=== PATIENT | female | born 1940 | race Caucasian/White ===

== ENCOUNTER 2016-07-07 00:55 | Inpatient (IN) | payer OTHER ==
[~2016-07-07] VITALS: Ht 160 cm; Wt 58.5 kg
[2016-07-07] MEDS ORDERED: NACL 0.9% 1,000 ML IV SCH (00:56)
--- NOTE | 2016-07-07 00:56 | NUR ---
[facility] TO ER BED 1
--- NOTE | 2016-07-07 00:57 | NUR ---
Patient being evaluated by physician at bedside.
[2016-07-07 01:00] VITALS: BP 136/100
--- NOTE | 2016-07-07 01:15 | NUR ---
PATIENT BIB [facility] WITH ALOC. UNABLE TO OBTIAN HX AT THIS TIME. PT LIVES WITH FAMILY AND THEY WILL BE HERE SOON. SKIN IS PINK/WARM/DRY; LUNGS CLEAR BL; HR EVEN AND REGULAR;NO FEVER, CP, SOB, OR COUGH AT THIS TIME; NO PAIN AT THIS TIME; PATIENT POSITIONED FOR COMFORT; HOB ELEVATED; BEDRAILS UP X2; BED DOWN. ER MD MADE AWARE OF PT STATUS.
[2016-07-07 01:16] LABS: BASOPHILS # (AUTO) 0.2 K/uL (0.00-0.22); BASOPHILS % (AUTO) 2.4 % (0.0-2.0); EOSINOPHILS # (AUTO) 0.1 K/uL (0-0.4); EOSINOPHILS % (AUTO) 0.7 % (0.0-4.0); HEMATOCRIT 35.7 % (36-48); HEMOGLOBIN 12.2 g/dL (12.0-16.0); LYMPHOCYTES # (AUTO) 1.1 K/uL (2.5-16.5); LYMPHOCYTES % (AUTO) 11.8 % (20.5-51.1); MEAN CORPUSCULAR HEMOGLOBIN 29 pg (27-31); MEAN CORPUSCULAR HGB CONC 34 g/dL (33-37); MEAN CORPUSCULAR VOLUME 85 fL (80-94); MONOCYTES # (AUTO) 1.1 K/uL (0.8-1.0); MONOCYTES % (AUTO) 11.8 % (1.7-9.3); NEUTROPHILS # (AUTO) 7.1 K/uL (1.8-7.7); NEUTROPHILS % (AUTO) 73.3 % (42.2-75.2); PLATELET COUNT (AUTO) 247 K/uL (140-450); RED BLOOD CELL COUNT(AUTO) 4.19 MIL/uL (4.20-5.40); RED CELL DISTRIBUTION WIDTH 13.9 % (11.6-13.7)
[2016-07-07 01:34] LABS: ALANINE AMINOTRANSFERASE 31 U/L (12-78); ALBUMIN 4.5 g/dL (3.4-5.0); ALKALINE PHOSPHATASE 62 U/L (46-116); ANION GAP 30.3 (8-16); ASPARTATE AMINOTRANSFERASE 53 U/L (15-37); CALCIUM 8.1 mg/dL (8.5-10.1); CARBON DIOXIDE 14.6 mmol/L (21-32); CHLORIDE 97 mmol/L (98-107); GLUCOSE 67 mg/dL (74-106); SODIUM SERUM 135 mmol/L (136-145); TOTAL BILIRUBIN 0.5 mg/dL (0.0-1.0); TOTAL PROTEIN, SERUM 7.6 g/dL (6.4-8.2)
[2016-07-07 01:40] LABS: INR 1.1 (0.8-1.2); LACTIC ACID 1.4 mmol/L (0.4-2.0); PARTIAL THROMBOPLASTIN TIME 26.8 secs (22-35.6); PROTHROMBIN TIME 10.4 secs (10.8-13.4)
[2016-07-07 01:42] LABS: WHITE BLOOD COUNT (AUTO) 9.7 K/uL (4.8-10.8)
[2016-07-07 01:46] LABS: APPEARANCE,URINE SL CLOUDY (CLEAR); BILIRUBIN,URINE NEGATIVE (NEGATIVE); BLOOD, URINE 3+ (NEGATIVE); COLOR,URINE YELLOW (YELLOW); LEUKOCYTE ESTERASE ,URINE NEGATIVE (NEGATIVE); NITRITE, URINE NEGATIVE (NEGATIVE); PROTEIN,URINE 2+ (NEGATIVE); UGLUCOSE NEGATIVE (NEGATIVE); UROBILINOGEN,URINE 0.2 EU/dL (0.2 - 1)
[2016-07-07 01:49] LABS: CREATININE 12.7 mg/dL (0.6-1.3); POTASSIUM 6.9 mmol/L (3.5-5.1); UREA NITROGEN, BLOOD 102 mg/dL (7-18)
[2016-07-07] MEDS ORDERED: CHOL500040 PO (01:49)
[2016-07-07] MEDS ORDERED: PROM25TA27 PO (01:49)
[2016-07-07] MEDS ORDERED: LISI40TA4 PO (01:49)
[2016-07-07] MEDS ORDERED: CITA20TA7 PO (01:49)
[2016-07-07 01:55] LABS: RBC,URINE 0-5 (RARE) /HPF (0-5)
--- NOTE | 2016-07-07 01:55 | NUR ---
PT TO CT MADE AWARE
[2016-07-07 01:56] LABS: BACTERIA,URINE 2+ /HPF (None Seen); HYALINE CASTS, URINE 0-10 /LPF (None Seen); MUCUS,URINE 3+ /LPF (None Seen); SQUAMOUS EPITHELIAL CELL,UR 4-10 (MOD) /LPF (0-3 (FEW)); URINE AMORPHOUS URATE 1+ /HPF (None Seen); WBC,URINE 0-5 (RARE) /HPF (0-5)
[2016-07-07] MEDS ORDERED: ASCO500T45 PO (01:56)
[2016-07-07] MEDS ORDERED: ASPI81CT89 PO (01:56)
[2016-07-07] MEDS ORDERED: ORE25 PO (01:56)
[2016-07-07] MEDS ORDERED: HYDR-4452 PO (01:56)
[2016-07-07] MEDS ORDERED: MSCON15 PO (01:56)
[2016-07-07] MEDS ORDERED: FOLI-119 PO (02:01)
[2016-07-07] MEDS ORDERED: CYAN500T51 PO (02:01)
[2016-07-07] MEDS ORDERED: POTASSIUM PO (02:01)
[2016-07-07] MEDS ORDERED: DEXTROSE 50% 50 ML SYR IVP ONE (02:05)
[2016-07-07] MEDS ORDERED: SODIUM POLYSTYRENE 15 GM/60 ML UDBTL PO ONE (02:05)
[2016-07-07 02:24] LABS: CKMB RELATIVE INDEX 1.5 (0.0-2.5)
--- NOTE | 2016-07-07 02:52 | NUR ---
TALKED WITH DAUGHTER. PT HAS HX OF HTN/OSTEOPOROSIS AND CHRONIC PAIN. DAUGHTER STATES HER PT LOCKED HERSELF IN THE BATHROOM TODAY AND SHE HAD TO BREAK IN TO GET HER AND FOUND HER MOM NAKED ON THE FLOOR AND CALLED 911 AT THAT TIME. DAUGHTER STATES SHE HAS NEVER DONE THIS BEFORE.
--- NOTE | 2016-07-07 03:50 | NUR ---
PATIENT TRANSFERRED FROM ER VIA GURNEY. NO RESPIRATORY DISTRESS, SOB, OR DISCOMFORT. PATIENT IS A 76-YEAR-OLD, FEMALE, DIAGNOSIS: ALTERED MENTAL STATUS, ACUTE RENAL FAILURE, AND HYPERKALEMIA, UNDER THE CARE OF LEXI MUNIZ. INITIAL ASSESSMENT AND BODY CHECK DONE. PATIENT IS CONFUSED ABLE TO STATE FULL NAME AND , SKIN IS INTACT, IV ACCESS TO RIGHT FOREARM 18G, PATENT. DISCUSSED PLAN OF CARE, MEDICATION REGIMENT, AND PAIN MANAGEMENT WITH PATIENT. PLACE PATIENT ON SAFETY/FALL PRECAUTIONS. CALL LIGHT LEFT WITHIN REACH, WILL CONTINUE TO MONITOR.
--- NOTE | 2016-07-07 03:59 | NUR ---
Patient will be admitted to care of DR WEST. Admited to TELE. Will go to [facility]. Belongings list completed. Report to URSULA Moore.
[2016-07-07 04:00] VITALS: BP 120/65
[2016-07-07] MEDS ORDERED: MORPHINE TAB ER 15 MG TABER PO PRN (04:25)
[2016-07-07] MEDS ORDERED: PROMETHAZINE 25 MG TAB PO PRN (04:25)
[2016-07-07] MEDS ORDERED: HYDROcodone/APAP 10/325 MG 1 TAB TAB PO PRN (04:25)
[2016-07-07] MEDS ORDERED: ACETAMINOPHEN 325 MG TAB PO PRN (04:30)
[2016-07-07] MEDS ORDERED: DEXTROSE 5% 500 ML IV SCH (04:30)
[2016-07-07] MEDS ORDERED: LORazepam 2 MG/ML VIAL IVP PRN (04:30)
--- NOTE | 2016-07-07 06:04 | NUR ---
PATIENT IN BED, SLEEPING. NO RESPIRATORY DISTRESS, SOB, OR DISCOMFORT. CALL LIGHT LEFT WITHIN REACH, WILL CONTINUE TO MONITOR.
[2016-07-07 06:59] LABS: ANION GAP 24.6 (8-16); CALCIUM 7.3 mg/dL (8.5-10.1); CARBON DIOXIDE 17.1 mmol/L (21-32); CHLORIDE 101 mmol/L (98-107); GLUCOSE 105 mg/dL (74-106); SODIUM SERUM 136 mmol/L (136-145)
--- NOTE | 2016-07-07 07:02 | NUR ---
REPORT GIVEN TO DAY NURSEJOVITA. PATIENT RESTING IN BED, STABLE. NO RESPIRATORY DISTRESS, SOB, OR DISCOMFORT. ALL NEEDS ATTENDED TO DURING SHIFT, CALL LIGHT LEFT WITHIN REACH.
--- NOTE | 2016-07-07 07:03 | NUR ---
RECEIVED PT FROM URSULA COTTO AWAKE BUT CONFUSED, AOX1, WITH IV ACCESS ON RIGHT FOREARM 18G ON SALINE LOCK PATENT AND INTACT. WITH O2 VIA NC AT 2LPM, NO S/S OF DISTRESS. SKIN IS INTACT. DISCUSSED PLAN OF CARE, REINFORCEMENT NEEDED. CALL LIGHT WITHIN REACH, WILL CONTINUE TO MONITOR.
[2016-07-07 07:46] LABS: CREATININE 11.3 mg/dL (0.6-1.3); POTASSIUM 6.7 mmol/L (3.5-5.1); UREA NITROGEN, BLOOD 100 mg/dL (7-18)
[2016-07-07 08:00] VITALS: BP 129/65
--- NOTE | 2016-07-07 08:12 | NUR ---
NOTIFIED DR. ELLIOTT OF CRITICAL VALUES, NEPHRO TO SEE PT
[2016-07-07 08:48] LABS: MAGNESIUM 2.3 mg/dL (1.8-2.4)
[2016-07-07 08:50] LABS: PHOSPHORUS 16.1 mg/dL (2.5-4.9)
[2016-07-07] MEDS: NACL 0.9% 1,000 ML IV SCH ×2 (08:56→18:11)
[2016-07-07] MEDS ORDERED: INSULIN LISPRO 100 UNITS/ML VIAL SUBQ SCH (09:00)
[2016-07-07] MEDS: ASCORBIC ACID 500 MG TAB PO SCH (09:00)
[2016-07-07] MEDS: CYANOCOBALAMIN 1,000 MCG TAB PO SCH (09:00)
[2016-07-07] MEDS: CITALOPRAM 20 MG TAB PO SCH (09:00)
[2016-07-07] MEDS: ASPIRIN 81 MG TAB.CHEW PO SCH (09:00)
[2016-07-07] MEDS: MULTIVIT/MIN/CA/FE/FA 1 TAB PO SCH (09:00)
[2016-07-07] MEDS ORDERED: CALCIUM GLUCONATE 10% 1,000 MG in NACL 0.9% 100 ML IV SCH (09:00)
--- NOTE | 2016-07-07 09:22 | NUR ---
SPOKE TO DR CARR, GAVE NEW ORDERS. WILL CARRY OUT
--- NOTE | 2016-07-07 09:25 | NUR ---
BARKER CATHETER INSERTED AND CONNECTED TO URINE BAG, DRAINED ABOUT 700ML OF YELLOW URINE. PT TOLERATED WELL.
--- NOTE | 2016-07-07 09:30 | NUR ---
PO MEDS HELD DUE TO PT CONSCIOUSNESS IS ALTERED
[2016-07-07] MEDS: DEXTROSE 50% 50 ML SYR IVP SCH ×2 (09:33→12:40)
[2016-07-07] MEDS: HYDROCHLOROTHIAZIDE 25 MG TAB PO SCH (09:35)
--- NOTE | 2016-07-07 10:59 | NUR ---
DR. Luma ELLIOTT AT NURSES STATION
[2016-07-07 12:00] VITALS: BP 117/44
[2016-07-07] MEDS ORDERED: LEVOFLOXACIN 750 MG/D5W PREMIX 150 ML IV SCH ×2 (12:00→13:00)
--- NOTE | 2016-07-07 12:19 | NUR ---
DR CARR AT BEDSIDE
[2016-07-07 12:32] LABS: ANION GAP 20.8 (8-16); CALCIUM 7.7 mg/dL (8.5-10.1); CARBON DIOXIDE 18.1 mmol/L (21-32); CHLORIDE 105 mmol/L (98-107); POTASSIUM 4.9 mmol/L (3.5-5.1); SODIUM SERUM 139 mmol/L (136-145)
--- NOTE | 2016-07-07 12:33 | NUR ---
NEW ORDERS TO CARRY OUT, INSERTED ANOTHER IV LINE AT LEFT ARM 22G INFUSING FLUIDS WELL. WITH DAUGHTER AT BEDSIDE. CALL LIGHT WITHIN REACH, WILL CONTINUE TO MONITOR.
[2016-07-07 12:34] LABS: CREATININE 9.7 mg/dL (0.6-1.3); GLUCOSE 38 mg/dL (74-106); UREA NITROGEN, BLOOD 97 mg/dL (7-18)
[2016-07-07] MEDS ORDERED: RENAL DOSING PER PHARMACY MC PRN (12:40)
[2016-07-07] MEDS ORDERED: NON-FORMULARY ITEM (Cholecalciferol (Vitamin D3) (Vitamin D3) 50,000 UNIT) PO SCH (13:00)
[2016-07-07] MEDS ORDERED: DEXTROSE 5% 1,000 ML IV SCH (13:10)
--- NOTE | 2016-07-07 14:38 | NUR ---
PT RESTING ON BED, NO S/S OF DISTRESS AT THIS TIME. CALL LIGHT WITHIN REACH, WILL CONTINUE TO MONITOR.
--- NOTE | 2016-07-07 15:10 | NUR ---
REPOSITIONED PT TO SIDE. DAUGHTERS AT BEDSIDE
--- NOTE | 2016-07-07 15:28 | NUR ---
DR Danilo ELLIOTT AT NURSES' STATION
--- NOTE | 2016-07-07 15:56 | NUR ---
DR DILLARD AT NURSES' STATION
[2016-07-07 16:00] VITALS: BP 142/51
--- NOTE | 2016-07-07 17:48 | NUR ---
PT ASLEEP, NO S/S OF RESPIRATORY DISTRESS NOTED. WITH RELATIVES AT BEDSIDE. CALL LIGHT WITHIN REACH, WILL CONTINUE TO MONITOR
[2016-07-07 17:52] LABS: AMPHETAMINE, URINE NEG. ng/ml (NEG <=1000); BARBITURATE, URINE NEG. ng/ml (NEG <=200); BENZODIAZEPINE, URINE NEG. ng/mL (NEG <=200); CANNABINOID, URINE NEG. ng/mL (NEG <=50); COCAINE, URINE NEG. ng/mL (NEG <=300); OPIATE, URINE POS. ng/mL (NEG <=2000); PHENCYCLIDINE SCREEN,URINE NEG. ng/mL (NEG <=25)
--- NOTE | 2016-07-07 18:30 | NUR ---
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 STATED THEY WOULD BRING POA COPY
--- NOTE | 2016-07-07 18:38 | NUR ---
NOTIFIED DR. Danilo ELLIOTT REGARDING TROPONIN OF 0.045 AND URINE POSITIVE FOR OPIATES. NO NEW ORDERS.
--- NOTE | 2016-07-07 19:12 | NUR ---
ENDORSED PT TO JUDITH VERGARA IN STABLE CONDITION FOR CONTINUITY OF CARE
--- NOTE | 2016-07-07 19:13 | NUR ---
RECEIVED REPORT FROM DAY RN FOR CONTINUITY OF CARE. PATIENT IS A&OX1, WILL ONLY MAKE GRUNTING NOISES. EXPLAINED PLAN OF CARE WITH PATIENT, UNABLE TO VERBALIZE UNDERSTANDING. SHIFT ASSESSMENT DONE, VS TAKEN, LOW B/P NOTED, RAISED FOOT OF BED AND NOW UP TO 107/65, ALL OTHER VS STABLE. NO S/S OF RESPIRATORY DISTRESS NOTED ON 2L O2. NO S/S OF PAIN NOTED. IV TO RT FA 22 GAUGE PATENT AND INFUSING FLUIDS WELL, IV TO LT FA 22 G PATENT AND INFUSING FLUIDS WELL. SKIN INTACT. BARKER CATHETER IN PLACE WITH SMALL AMOUNT OF CLEAR YELLOW URINE DRAINING TO GRAVITY. SAFETY/FALL/NPO SIGNS POSTED AND PRECAUTIONS ENFORCED. CALL LIGHT PLACED WITHIN REACH. WILL CONTINUE TO MONITOR.
[2016-07-07 20:00] VITALS: BP 107/65
[2016-07-07 20:04] LABS: ANION GAP 17.8 (8-16); CALCIUM 7.4 mg/dL (8.5-10.1); CARBON DIOXIDE 20.6 mmol/L (21-32); CHLORIDE 105 mmol/L (98-107); GLUCOSE 92 mg/dL (74-106); POTASSIUM 5.4 mmol/L (3.5-5.1); SODIUM SERUM 138 mmol/L (136-145)
[2016-07-07 20:16] LABS: CREATININE 8.3 mg/dL (0.6-1.3); UREA NITROGEN, BLOOD 94 mg/dL (7-18)
--- NOTE | 2016-07-07 22:03 | NUR ---
SPOKE WITH Leida BRIDGES INFORMED HIM OF LOW BLOOD SUGAR, RECEIVED ORDERS WILL FOLLOW OUT GIVEN.
[2016-07-07] MEDS: DEXTROSE 10% 1,000 ML IV SCH (22:19)
--- NOTE | 2016-07-07 22:19 | NUR ---
IMPLEMENTED NEW IVF PER MD ORDER. WILL REASSESS BLOOD SUGAR.
[2016-07-08] VITALS: BP 98/63
--- NOTE | 2016-07-08 00:04 | NUR ---
VS TAKEN, STABLE. BLOOD SUGAR NOW 88. PT OPENED EYES AND WAS CONFUSED TO WHERE SHE IS AT, ORIENTED PATIENT AND PLACED CALL LIGHT IN REACH.
--- NOTE | 2016-07-08 02:00 | NUR ---
TROPONIN DRAWN BY LAB, PATIENT TOLERATED WELL. PT IS NOW SLEEPING.
[2016-07-08 04:00] VITALS: BP 92/54
--- NOTE | 2016-07-08 04:12 | NUR ---
VITAL SIGNS TAKEN, LOW BP NOTED, REPOSITIONED PATIENT, WILL REASSESS. ALL OTHER VS STABLE. BLOOD SUGAR TAKEN, 83. PT UNABLE TO ANSWER WHERE SHE IS OR WHERE SHE LIVES. PT WENT BACK TO SLEEP.
[2016-07-08 06:21] LABS: BASOPHILS # (AUTO) 0.1 K/uL (0.00-0.22); BASOPHILS % (AUTO) 1.9 % (0.0-2.0); EOSINOPHILS # (AUTO) 0.2 K/uL (0-0.4); EOSINOPHILS % (AUTO) 2.6 % (0.0-4.0); HEMATOCRIT 27.9 % (36-48); HEMOGLOBIN 9.5 g/dL (12.0-16.0); LYMPHOCYTES # (AUTO) 1.8 K/uL (2.5-16.5); LYMPHOCYTES % (AUTO) 26.5 % (20.5-51.1); MEAN CORPUSCULAR HEMOGLOBIN 29 pg (27-31); MEAN CORPUSCULAR HGB CONC 34 g/dL (33-37); MEAN CORPUSCULAR VOLUME 87 fL (80-94); MONOCYTES # (AUTO) 0.6 K/uL (0.8-1.0); MONOCYTES % (AUTO) 9.4 % (1.7-9.3); NEUTROPHILS # (AUTO) 4.1 K/uL (1.8-7.7); NEUTROPHILS % (AUTO) 59.6 % (42.2-75.2); PLATELET COUNT (AUTO) 169 K/uL (140-450); RED BLOOD CELL COUNT(AUTO) 3.22 MIL/uL (4.20-5.40); RED CELL DISTRIBUTION WIDTH 14.3 % (11.6-13.7); WHITE BLOOD COUNT (AUTO) 6.9 K/uL (4.8-10.8)
[2016-07-08 06:41] LABS: CARBON DIOXIDE 18.5 mmol/L (21-32); CHLORIDE 107 mmol/L (98-107); GLUCOSE 90 mg/dL (74-106); POTASSIUM 4.5 mmol/L (3.5-5.1); SODIUM SERUM 139 mmol/L (136-145)
[2016-07-08 06:46] LABS: PHOSPHORUS 8.1 mg/dL (2.5-4.9); UREA NITROGEN, BLOOD 87 mg/dL (7-18)
[2016-07-08 06:48] LABS: CREATININE 6.9 mg/dL (0.6-1.3)
--- NOTE | 2016-07-08 07:18 | NUR ---
ENDORSED PATIENT TO DAY RN FOR CONTINUITY OF CARE, PATIENT IS IN STABLE CONDITION.
--- NOTE | 2016-07-08 07:19 | NUR ---
RECEIVED PT IN BED, AWAKE, RESPONSIVE. ON 02 AT 2LPM VIA NASAL CANNULA. NO SIGNS AND SYMPTOMS OF ACUTE DISTRESS NOTED. DENIES ANY PAIN OR DISCOMFORT. IV ON LEFT FA AND LEFT HAND G22 NOTED, INTACT. PT ON NPO, FOR SWALLOW EVAL. FC IN PLACE, DRAINING CLEAR YELLOW URINE. CALL LIGHT WITHIN REACH, SAFETY PRECAUTION MAINTAINED.
[2016-07-08] MEDS: ASCORBIC ACID 500 MG TAB PO SCH (08:10)
[2016-07-08] MEDS: CITALOPRAM 20 MG TAB PO SCH (08:10)
[2016-07-08] MEDS: CYANOCOBALAMIN 1,000 MCG TAB PO SCH (08:10)
[2016-07-08] MEDS: MULTIVIT/MIN/CA/FE/FA 1 TAB PO SCH (08:10)
[2016-07-08] MEDS: ASPIRIN 81 MG TAB.CHEW PO SCH (08:10)
[2016-07-08 08:59] VITALS: BP 103/50
--- NOTE | 2016-07-08 09:10 | NUR ---
PATIENT HAS BEEN SCREENED AND CATEGORIZED HIGH NUTRITION RISK. PATIENT WILL BE SEEN WITHIN 1-2 DAYS OF ADMISSION. 07/07/16-07/08/[address]
[2016-07-08 12:00] VITALS: BP 106/47
--- NOTE | 2016-07-08 12:46 | NUR ---
BUSINESS PROCESS LEAD note (bedside swallow evaluation completed) [id number]. Bedside swallow evaluation completed. Please see report for details. BUSINESS PROCESS LEAD provided pt with education regarding purpose of evaluation and rationale for recommendations. Pt verbalized understanding of recommendations at this time. Recommend: 1) regular textures 2) thin liquids 3) general aspiration precautions (including pt must be fully awake/alert/upright for any PO intakes, stop PO if pt becomes sleepy/less alert/SOB/coughing) 4) no further BUSINESS PROCESS LEAD intervention indicated at this time. Physician to reorder if further concerns arise, as appropriate. G-codes: [id number] [id number] [facility] NOMS level 7. PVE for discussion with RN (Zeinab) prior to and following evaluation completion.
--- NOTE | 2016-07-08 15:53 | NUR ---
07/08/16 RD INITIAL ASSESSMENT COMPLETED PLEASE REFER TO NUTRITION ASSESSMENT UNDER CARE ACTIVITY FOR ESTIMATED NUTRITIONAL NEEDS. RD RECOMMENDATIONS: 1. CONITNUE NPO MEDICALLY NECESSARY PER MD 2. WHEN MEDICALLY APPROPRIATE CONSIDER ADVANCE DIET TOLERATED TO REGULAR 3. RD WILL F/U 3-5 DAYS; MODERATE RISK. CHENTE TURNER RD
[2016-07-08 16:00] VITALS: BP 100/53
--- NOTE | 2016-07-08 16:05 | NUR ---
FAXED INITIAL REVIEW TO [facility] [phone] PHONE [facility] [phone]
--- NOTE | 2016-07-08 18:05 | NUR ---
WAS SEEN BY Danilo BRIDGES. CONTINUE TO MONITOR.
--- NOTE | 2016-07-08 18:54 | NUR ---
PT IN BED, RESTING WELL. NO SIGNS OF ACUTE DISTRESS. ENDORSED TO ONCOMING CARTOGRAPHY TEACHER NURSE FOR CONTINUITY OF CARE.
--- NOTE | 2016-07-08 19:30 | NUR ---
RECEIVED REPORT FROM DAY RN AT BEDSIDE. PATIENT IN STABLE CONDITION. PATIENT IS AAOX4, PATIENT RESTING IN BED, ON O2 2L NC. NO SOB OR SIGN OF DISTRESS AT THIS TIME, IV TO LEFT HAND 22G AND LFA 22G PATENT AND INTACT, ASYMPTOMATIC, BARKER PRESENT WITH YELLOW URINE. SKIN INTACT. DISCUSSED PLAN OF CARE WITH PATIENT, PATIENT VERBALIZED UNDERSTANDING. REINFORCEMENT MAY BE NEEDED, FAMILY IS AT BEDSIDE, SAFETY MEASURES CHECKED, CALL LIGHT WITHIN REACH. WILL CONTINUE TO MONITOR.
[2016-07-08 20:00] VITALS: BP 113/57
--- NOTE | 2016-07-08 22:30 | NUR ---
PATIENT UNCOMFORTABLE IN BED, REPOSITIONED AND FIXED LINEN, NO SOB OR SIGN OF DISTRESS, PATIENT WATCHING TV, CALL LIGHT WITHIN REACH. WILL CONTINUE TO MONITOR.
[2016-07-08] MEDS: DEXTROSE 10% 1,000 ML IV SCH (22:43)
--- NOTE | 2016-07-08 23:59 | NUR ---
VITAL SIGNS STABLE, NO SOB OR SIGN OF DISTRESS AT THIS TIME, PATIENT RESTING IN BED WATCHING TV. CALL LIGHT WITHIN REACH. WILL CONTINUE TO MONITOR.
[2016-07-09] VITALS: BP 106/52
--- NOTE | 2016-07-09 01:33 | NUR ---
PATIENT SLEEPING, NO SOB OR SIGN OF DISTRESS AT THIS TIME , CALL LIGHT WITHIN REACH. WILL CONTINUE TO MONITOR.
--- NOTE | 2016-07-09 02:15 | NUR ---
PATIENT SLEEPING, NO SOB OR SIGN OF DISTRESS AT THIS TIME, CALL LIGHT WITHIN REACH. WILL CONTINUE TO MONITOR.
[2016-07-09 04:00] VITALS: BP 131/58
--- NOTE | 2016-07-09 04:11 | NUR ---
VITAL SIGNS STABLE, NO SOB OR SIGN OF DISTRESS, PATIENT RESTING COMFORTABLY, CALL LIGHT WITHIN REACH. WILL CONTINUE TO MONITOR.
--- NOTE | 2016-07-09 06:00 | NUR ---
PATIENT SLEEPING, NO SOB OR SIGN OF DISTRESS, CALL LIGHT WITHIN REACH. WILL CONTINUE TO MONITOR
[2016-07-09 06:16] LABS: BASOPHILS % (AUTO) 0.4 % (0.0-2.0); EOSINOPHILS # (AUTO) 0.2 K/uL (0-0.4); EOSINOPHILS % (AUTO) 3.7 % (0.0-4.0); HEMATOCRIT 31.9 % (36-48); HEMOGLOBIN 10.5 g/dL (12.0-16.0); LYMPHOCYTES # (AUTO) 1.8 K/uL (2.5-16.5); LYMPHOCYTES % (AUTO) 29.7 % (20.5-51.1); MEAN CORPUSCULAR HEMOGLOBIN 28 pg (27-31); MEAN CORPUSCULAR HGB CONC 33 g/dL (33-37); MEAN CORPUSCULAR VOLUME 86 fL (80-94); MONOCYTES # (AUTO) 0.7 K/uL (0.8-1.0); MONOCYTES % (AUTO) 11.8 % (1.7-9.3); NEUTROPHILS # (AUTO) 3.5 K/uL (1.8-7.7); NEUTROPHILS % (AUTO) 54.4 % (42.2-75.2); PLATELET COUNT (AUTO) 202 K/uL (140-450); RED CELL DISTRIBUTION WIDTH 14.3 % (11.6-13.7); WHITE BLOOD COUNT (AUTO) 6.2 K/uL (4.8-10.8)
[2016-07-09 06:25] LABS: CALCIUM 8.1 mg/dL (8.5-10.1); CARBON DIOXIDE 21.4 mmol/L (21-32); CHLORIDE 110 mmol/L (98-107); GLUCOSE 83 mg/dL (74-106); POTASSIUM 4.4 mmol/L (3.5-5.1); SODIUM SERUM 141 mmol/L (136-145)
[2016-07-09 06:43] LABS: MAGNESIUM 1.7 mg/dL (1.8-2.4); PHOSPHORUS 4.5 mg/dL (2.5-4.9)
[2016-07-09 07:02] LABS: UREA NITROGEN, BLOOD 64 mg/dL (7-18)
[2016-07-09 07:07] LABS: CKMB RELATIVE INDEX 0.8 (0.0-2.5); CREATINE KINASE MB 7.7 ng/mL (0-3.6)
--- NOTE | 2016-07-09 07:23 | NUR ---
ENDORSED PATIENT TO DAY RN AT BEDSIDE, PATIENT IN STABLE CONDITION
--- NOTE | 2016-07-09 07:24 | NUR ---
PT ALERT AND ORIENTED X3, RESTING WELL IN BED. NO SIGNS OF ACUTE DISTRESS. WITH O2 AT 2L/MIN VIA NC. SKIN IS WARM AND DRY. NO SIGNS OF ANY BOWEL OR BLADDER DISCOMFORT AT THIS TIME. BARKER CATHETER NOTED AT 200ML, CLEAR YELLOW URINE. OFFLOAD TO PRESSURE AREAS. NO C/O ANY PAIN. SAFETY PRECAUTIONS MAINTAINED. CALL LIGHT WITHIN REACH.
[2016-07-09 08:00] VITALS: BP 127/62
--- NOTE | 2016-07-09 08:41 | NUR ---
RECEIVED AN ORDER FOR PATIENT TO BE TRANSFERED TO CONTRACTED FACILITY. I CALLED ASH AT [facility]. HE SAID THE PATIENT WILL GO TO [facility] ([facility]) UNDER DR. RIVERA. SHE WILL GO TO ROOM 214 BED 2 CALL REPORT TO [phone] [id number]. ASH WILL SET UP TRANSPORT. VIJAY VERGARATSO NURSE AWARE. SPOKE WITH PATIENT AND EXPLAINED THAT SHE WILL BE GOING TO A CONTRACTED FACILITY. SHE DID REQUEST [facility], BUT PER ASH AT [facility], THEY TRIED [facility] AND THEY HAD NO BEDS. SHE AGREED TO BE TRANSFERED. SHE ASKED THAT HER DAUGHTER BE CALLED, AND VIJAY VERGARATSO NURSE WILL CALL THE DAUGHTER.
[2016-07-09] MEDS: CITALOPRAM 20 MG TAB PO SCH (08:58)
[2016-07-09] MEDS: ASPIRIN 81 MG TAB.CHEW PO SCH (08:58)
[2016-07-09] MEDS: CYANOCOBALAMIN 1,000 MCG TAB PO SCH (08:58)
[2016-07-09] MEDS: ASCORBIC ACID 500 MG TAB PO SCH (08:59)
[2016-07-09] MEDS: MULTIVIT/MIN/CA/FE/FA 1 TAB PO SCH (09:05)
--- NOTE | 2016-07-09 09:20 | NUR ---
FAXED CONCURRENT REVIEW TO [facility] [phone] PHONE [facility] [phone]
--- NOTE | 2016-07-09 09:50 | NUR ---
REPORT GIVEN TO CINDY VERGARA AT [facility].
--- NOTE | 2016-07-09 11:45 | NUR ---
PT AWAKE ALERT AND ORIENTED, NO SIGNS OF ACUTE DISTRESS. MAY TRANSFER TO [facility] IN [place] ORDERED. EDUCATED PT ON CONTINUING PLAN OF CARE, PT VERBALIZED UNDERSTANDING. IV LINE ON LEFT FOREARM AND HAND ON HEPLOCK. PERSONAL BELONGINGS WITH PT UPON TRANSFER. PICKED UP BY PATRICIA AND TRANSFERRED VIA GURNEY. PT'S DAUGHTER AWARE PER TRISH NELSON.
[2016-07-09] MEDS ORDERED: LEVOFLOXACIN 500 MG/D5W PREMIX 100 ML IV SCH (13:00)
== END 2016-07-09 11:45 | disposition short-term general hospital (02) | DRG 871 ==
LOC: MED 00:55 → MTU 03:13
PROVIDERS: ADMIT Preventive Medicine Preventive Medicine/Occupational Environmental Medicine; ATTEND Preventive Medicine Preventive Medicine/Occupational Environmental Medicine
DX: A41.9 Sepsis, unspecified organism (principal); G93.41 Metabolic encephalopathy; N17.9 Acute kidney failure, unspecified; E87.1 Hypo-osmolality and hyponatremia; M62.82 Rhabdomyolysis; N39.0 Urinary tract infection, site not specified; E87.5 Hyperkalemia; E16.2 Hypoglycemia, unspecified; E83.39 Other disorders of phosphorus metabolism; I10 Essential (primary) hypertension; M81.0 Age-related osteoporosis without current pathological fracture; D64.9 Anemia, unspecified; E83.51 Hypocalcemia; E86.1 Hypovolemia; R31.9 Hematuria, unspecified; G89.29 Other chronic pain; F32.9 Major depressive disorder, single episode, unspecified; R74.0 Nonspecific elevation of levels of transaminase and lactic acid dehydrogenase [LDH]; Z79.82 Long term (current) use of aspirin; Z79.899 Other long term (current) drug therapy
CPT/HCPCS: 36415; 70450; 71010; 76770; 80048; 80053; 80305; 81001; 82550; 82553; 82948; 83605; 83735; 83874; 83880; 84100; 84484; 85025; 85610; 85651; 85730; 86140; 87040; 87081; 87086; 92610; 93005; 96361; 96374; 97799; 99291; C1758; J0610; J0696; J1815; J1956; J2060; J3420; J7030; J7060; Q0092